=== PATIENT | female | born 1945 | race Caucasian/White ===

== ENCOUNTER 2019-10-21 15:20 | Outpatient (CLI) | payer MEDICARE ==
--- NOTE | 2019-10-21 15:43 | RAD ---
Radiograph right ribs 4 views: 10/21/2019 DATE: Sudden onset right rib pain in 74-year-old female. FINDINGS: No acute displaced fracture is identified. Right lateral costophrenic angle is sharp. No pneumothorax . IMPRESSION: No right rib fracture identified.
--- NOTE | 2019-10-21 15:45 | RAD ---
THORACIC SPINE: 10/21/19 Four views. HISTORY: Back pain. There are moderate degenerative changes with spurring seen anteriorly and laterally. The thoracic ally tebrae maintain height. No compression deformity. No lytic or blastic process. Slight curvature to th e left in the lower thoracic spine is noted. IMPRESSION: Moderate degenerative changes and slight curvature to the left. No acute process identified. POS: AH
== END 2019-10-21 15:21 | disposition home or self-care (01) ==
LOC: SCSRAD 15:20
PROVIDERS: ATTEND Family Medicine
DX: R07.82 Intercostal pain (principal); M54.9 Dorsalgia, unspecified; M47.814 Spondylosis without myelopathy or radiculopathy, thoracic region
CPT/HCPCS: 72072

== ENCOUNTER 2020-07-05 19:30 | Outpatient (CLI) | payer MEDICARE | END 2020-07-05 19:31 | disposition home or self-care (01) | LOC: SLEEPLAB 19:30 | PROVIDERS: ATTEND Family Medicine | DX: F51.9 Sleep disorder not due to a substance or known physiological condition, unspecified (principal); G47.33 Obstructive sleep apnea (adult) (pediatric); G47.10 Hypersomnia, unspecified; G47.61 Periodic limb movement disorder; K21.9 Gastro-esophageal reflux disease without esophagitis; R06.83 Snoring; I10 Essential (primary) hypertension; G47.00 Insomnia, unspecified; E66.9 Obesity, unspecified; Z68.41 Body mass index [BMI] 40.0-44.9, adult | CPT/HCPCS: 95810 ==